=== PATIENT | male | born 1975 | race African-American/Black ===

== ENCOUNTER 2021-01-18 10:09 | Emergency (ER) | payer MEDICARE ==
[~2021-01-18 10:09] MED LIST: ATARAX25 MG PO; BENTYL10 MG PO; DESYREL50 MG PO; FENOFIBRATE160 MG PO; FISH OIL 1,0001 EACH PO; FOLIC ACID1 M1 PO; HYDRALAZINE 10M10 MG PO; KEPPRA250 MG PO; NEURONTIN300 MG PO; NORCO 5-325 TA1 EACH PO; NORCO 5/3251 EACH PO; NORVASC5 MG PO; ONDANSETRON HCL4 MG PO; PEPCID40 MG PO; TOPROL XL 50 MG50 MG PO; VITAMIN B-1100 M1 PO; ZOFRAN4 MG PO; ZOFRAN8 MG PO
[2021-01-18 10:55] LABS: BASOPHIL 0.3 % (0-2); EOSINOPHIL 0 % (0-5); HCT 37.7 % (42.0-52.0); LYMPHOCYTE 12.3 % (15-48); MCH 34.6 pg (25.0-31.0); MCHC 34.5 g/dL (32.0-36.0); MCV 100.3 fL (78.0-100.0); MONOCYTE 2.5 % (0-12); MPV 9.9 fL (6.0-9.5); NEUTROPHIL 84.5 % (41-80); NRBC 0; PLT 235 K/uL (150-400); RBC 3.76 M/uL (4.70-6.00); RDW 12.3 % (11.5-14.0); WBC 9.3 K/uL (4.0-10.5)
[2021-01-18 11:22] LABS: INR 1.06 (0.9-1.2); PROTHROMBIN TIME 13.2 SECONDS (11.8-13.4)
[2021-01-18 11:35] LABS: LACTIC ACID 4.4 mmol/L (0.4-1.9)
[2021-01-18 11:39] LABS: ALBUMIN 4.4 g/dL (3.4-5.0); BILIRUBIN - TOTAL 0.8 mg/dL (0.2-1.0); BUN/CREAT RATIO (CALC) 13.6 RATIO; CREATININE 0.81 mg/dL (0.67-1.17); GLOBULIN (CALCULATION) 3.3 g/dL; MAGNESIUM 1.7 mg/dL (1.8-2.4); POTASSIUM 4.2 mmol/L (3.5-5.1); TOTAL PROTEIN 7.7 g/dL (6.4-8.2)
[2021-01-18 13:49] LABS: BILIRUBIN NEGATIVE (NEGATIVE); BLOOD TRACE-INTACT Ery/uL (NEGATIVE); CLARITY CLEAR (CLEAR); COLOR YELLOW (YELLOW); GLUCOSE (U) NORMAL (NORMAL); LEUKOCYTES NEGATIVE Leu/uL (NEGATIVE); NITRITE NEGATIVE (NEGATIVE); PROTEIN NEGATIVE (NEGATIVE); UROBILINOGEN 0.2 mg/dL (0.2-1.0)
[2021-01-18 14:08] LABS: URINARY RBC RARE
[2021-01-18] MEDS ORDERED: PHENERGAN25 M1 PO (16:15)
[2021-01-18] MEDS ORDERED: PERCOCET 7.5/321 TAB PO (16:15)
[2021-01-18] MEDS ORDERED: ZOFRAN4 M1 PO (16:15)
== END 2021-01-18 16:46 | disposition home or self-care (01) ==
LOC: FER 10:09
PROVIDERS: Emergency Medicine
DX: K86.1 Other chronic pancreatitis (principal); F17.210 Nicotine dependence, cigarettes, uncomplicated; Z20.822 Contact with and (suspected) exposure to COVID-19
CPT/HCPCS: 36415; 80053; 81001; 82150; 83605; 83690; 83735; 84145; 84443; 84484; 85025; 85610; 85730; 93005; G0480; J1170; J2405; J7030; Q9967; U0002

== ENCOUNTER 2021-06-27 10:39 | Emergency (ER) | payer MEDICARE ==
[~2021-06-27 10:39] MED LIST changes: +PERCOCET 7.5/321 TAB PO; +PHENERGAN25 M1 PO; +ZOFRAN4 M1 PO
[2021-06-27 13:09] LABS: BASOPHIL 0.5 % (0-2); EOSINOPHIL 0 % (0-5); HCT 41.9 % (42.0-52.0); HGB 14.7 g/dl (13.2-18.0); LYMPHOCYTE 19.9 % (15-48); MCH 34.6 pg (25.0-31.0); MCHC 35.1 g/dL (32.0-36.0); MCV 98.6 fL (78.0-100.0); MONOCYTE 5.4 % (0-12); MPV 10.1 fL (6.0-9.5); NEUTROPHIL 73.9 % (41-80); NRBC 0; PLT 233 K/uL (150-400); RBC 4.25 M/uL (4.70-6.00); RDW 12.4 % (11.5-14.0); WBC 8.7 K/uL (4.0-10.5)
[2021-06-27 13:57] LABS: ALBUMIN 4.9 g/dL (3.4-5.0); BILIRUBIN - TOTAL 1.3 mg/dL (0.2-1.0); BUN/CREAT RATIO (CALC) 18.4 RATIO; CREATININE 0.87 mg/dL (0.67-1.17); GLOBULIN (CALCULATION) 3.4 g/dL; MAGNESIUM 1.6 mg/dL (1.8-2.4); TOTAL PROTEIN 8.3 g/dL (6.4-8.2)
[2021-06-27 16:39] LABS: BILIRUBIN NEGATIVE (NEGATIVE); BLOOD 1+ Ery/uL (NEGATIVE); CLARITY CLEAR (CLEAR); COLOR YELLOW (YELLOW); GLUCOSE (U) NORMAL (NORMAL); LEUKOCYTES NEGATIVE Leu/uL (NEGATIVE); NITRITE NEGATIVE (NEGATIVE); PROTEIN NEGATIVE (NEGATIVE); UROBILINOGEN 0.2 mg/dL (0.2-1.0)
[2021-06-27 16:43] LABS: SQUAMOUS EPITHELIAL CELLS RARE
[2021-06-28] MEDS ORDERED: OXY-IR 5MG5 MG PO (04:25)
[2021-06-28] MEDS ORDERED: ONDANSETRON ODT4 MG PO (04:25)
== END 2021-06-28 05:11 | disposition home or self-care (01) ==
LOC: FER 10:39
PROVIDERS: Physician Assistant
DX: K86.1 Other chronic pancreatitis (principal); K52.9 Noninfective gastroenteritis and colitis, unspecified; F10.10 Alcohol abuse, uncomplicated; F17.210 Nicotine dependence, cigarettes, uncomplicated; Y90.4 Blood alcohol level of 80-99 mg/100 ml
CPT/HCPCS: 36415; 80053; 81001; 83690; 83735; 85025; C9113; G0480; J1170; J2270; J2405; J3411; J3475; J7030; J7050; J7120; J7121; Q9967